=== PATIENT | female | born 1960 | race Caucasian/White ===

== ENCOUNTER 2016-10-20 07:13 | Inpatient (IN) | payer OTHER ==
[2016-10-01 12:01] VITALS: BMI 36.0
--- NOTE | 2016-10-01 12:40 | PAT Medication Instructions ---
Service Date Oct 01, 2016. Current Home Medication List Acetaminophen (Tylenol Arthritis Ext Rel), 1,300 MG PO Q6HR PRN Desloratadine (Clarinex *), 5 MG PO QAM Diclofenac (Voltaren), 75 MG PO BID Lisinopril (Lisinopril), 1 TAB PO QAM Simvastatin (Simvastatin), 1 TAB PO QAM Medication Instructions For Your Scheduled Surgery - Hold the following medications 7 days prior to surgery: Diclofenac (Voltaren), 75 MG PO BID - Hold the following medications the morning of surgery: Lisinopril (Lisinopril), 1 TAB PO QAM Desloratadine (Clarinex *), 5 MG PO QAM - Take the following medications the morning of surgery with a sip of water: Simvastatin (Simvastatin), 1 TAB PO QAM. Acetaminophen (Tylenol Arthritis Ext Rel), 1,300 MG PO Q6HR PRN (if needed) - Take the following medications as scheduled the night before surgery: Acetaminophen (Tylenol Arthritis Ext Rel), 1,300 MG PO Q6HR PRN If you have any questions please call us at [phone] or [phone] ( [place]) or [phone]
[2016-10-01 13:09] LABS: BASO % 0.2 %; BASO ABS # 0.02 K/uL (0-0.2); COMPLETE YES; EOS % 1.6 %; HEMATOCRIT 39.5 % (37-47); IG% 0.2 %; LYMPH % 30.6 %; LYMPH ABS # 2.49 K/uL (1.2-3.4); MEAN CELL VOLUME 84.8 fL (80-100); MEAN CORPUSCULAR HGB CONC 34.2 g/dl (32-36); MEAN PLATELET VOLUME 9.5 fL (7.4-10.4); MONO % 5.3 %; NEUT % 62.1 %; PLATELET COUNT 282 K/uL (130-400); RED BLOOD COUNT 4.66 M/uL (4.2-5.4); WHITE BLOOD COUNT 8.13 K/uL (4.8-10.8)
[2016-10-01 13:10] LABS: URINE APPEARANCE CLEAR (CLEAR); URINE BILIRUBIN NEG (NEG); URINE COLOR YELLOW; URINE NITRITE NEG (NEG); URINE SPECIFIC GRAVITY 1.017 (1.000-1.030); UROBILINOGEN NEG (NEG); ZZUR CULT IF INDIC CLEAN CATCH NO
[2016-10-01 13:11] LABS: MANUAL MICROSCOPIC REQUIRED? NO; REVIEW REQ? NO
[2016-10-01 13:20] LABS: PROTHROMBIN TIME (PATIENT) 10.5 SECONDS (9.0-12.0)
--- NOTE | 2016-10-01 13:23 | DIAGNOSTIC IMAGING REPORT ---
CHEST 2 VIEWS ROUTINE CLINICAL HISTORY: Preoperative chest COMPARISON STUDY: 01/21/2010 FINDINGS: The cardiac and mediastinal contours are normal. There is no evidence of focal pulmonary consolidation. There is no evidence of failure. No pleural effusions are visualized.[ IMPRESSION: No active disease in the chest. Electronically signed by: Rocky Soto M.D. 10/01/2016 1:21 PM Dictated Date/Time: 10/01/2016 1:21 PM
[2016-10-01 13:29] LABS: BUN/CREATININE RATIO 21.2 (10-20); CALCIUM 9.3 mg/dl (8.5-10.1); CREATININE 0.76 mg/dl (0.60-1.20); POTASSIUM 4.2 mmol/L (3.5-5.1)
--- NOTE | 2016-10-19 10:38 | HISTORY & PHYSICAL EXAMINATION ---
DATE OF ADMISSION: 10/20/2016 CHIEF COMPLAINT: Right hip pain. HISTORY OF PRESENT ILLNESS: Ms. Ortez is a 56-year-old female with a multiple-year history of pain in her right hip. The patient's pain has been worse for the last year and half. She rates her pain a 6/10. She has pain with her daily activities. She has limited standing and walking tolerance. Pain is worse with weightbearing. The patient has had anti-inflammatories without relief. She is now scheduled for a right hip replacement. PAST MEDICAL HISTORY: Hypertension, hypercholesterolemia, and obesity. She denies heart disease, diabetes or DVT. PAST SURGICAL HISTORY: Tonsillectomy, right ankle, left hip resurfacing and left wrist. SOCIAL HISTORY: The patient denies alcohol or tobacco use. She lives in a split level home. She is and works in a lab. FAMILY HISTORY: Positive for diabetes. MEDICATIONS: Diclofenac 75 mg twice daily, Tylenol 650 mg p.r.n., ibuprofen 200 mg p.r.n., Zocor 10 mg daily, lisinopril 10 mg daily, Restasis 0.05%. ALLERGIES: CODEINE, PENICILLIN, PROMETHAZINE AND HYDROCHLOROTHIAZIDE. REVIEW OF SYSTEMS: See HPI. Ten other systems reviewed, all negative. PHYSICAL EXAMINATION: VITAL SIGNS: Height 5 foot 2, weight 205 pounds. BMI is 37. GENERAL: This is a well-developed, well-nourished female who is alert and oriented x3. Mood and affect are appropriate. HEENT: Normocephalic, atraumatic. Mucous membranes are moist and intact. NECK: Supple without lymphadenopathy. HEART: Regular rate and rhythm without murmurs, rubs or gallops. LUNGS: Clear to auscultation without wheezes or rhonchi. ABDOMEN: Soft and nontender. Bowel sounds are equal and active. EXTREMITIES: No ecchymosis, redness or warmth. The patient has calves soft and nontender. Log roll of the hip reproduces pain in the groin. Range of motion is decreased. She is neurovascularly intact with +5/5 strength. X-RAY EXAMINATION: AP and lateral views show joint space narrowing and osteophyte formation. She has moderate hip dysplasia and a very vertical neck. 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 PLAN: The patient will be admitted for a right hip resurfacing. We will plan on direct anterior. She will have aspirin for DVT prophylaxis. PCP is Dr. Zayas of [facility].
[2016-10-20] VITALS (9 sets, daily range): BP systolic 113–157; BP diastolic 68–85; PULSE 61–91; TEMP 36.3–37.1; O2SAT 97–100; Ht 160 cm; Wt 92.4 kg
[~2016-10-20] VITALS: Ht 160 cm; Wt 92.4 kg
[~2016-10-20 07:13] MED LIST: ACET1TAB84 PO; ACETAMINOPHEN 500 MG TAB PO SCH; CEFAZOLIN 2000 MG/60 ML D5W 60 ML IV SCH; CLINDAMYCIN 600 MG/54 ML D5W 54 ML IV SCH; CLR5 PO; DICL-201 PO; FAMOTIDINE 20 MG TAB PO SCH; LACTATED RINGER'S 1000ML 500 ML IV ONE; LACTATED RINGER'S 500 ML IV SCH; LSN40 PO; METOCLOPRAMIDE HCL 10 MG TAB PO SCH; OXYCODONE HCL 10 MG TABCR (OXYCONTIN) PO SCH; ROPIVACAINE 5MG/ML 30 ML 150 MG, BUPIVACAINE/EPINEPHR 0.5% MPF 30 ML, KETOROLAC TROMETH... INFIL SCH; SCOPOLAMINE 1.5 MG TDSY TD SCH; ZCR40 PO
[2016-10-20] MEDS ORDERED: BUPIVACAINE 0.5 % 5 MG/1 ML PF 10ML VIAL ONE (07:41)
[2016-10-20] MEDS ORDERED: PROPOFOL IV EMULSION 10 MG/ML 20 ML VIAL IV ONE (07:42)
[2016-10-20] MEDS ORDERED: LIDOCAINE HCL 2% 2 ML VIAL (20MG/ML) ONE (07:42)
[2016-10-20] MEDS ORDERED: MIDAZOLAM HCL 1 MG/ML 2ML VIAL ONE ×2 (07:42)
[2016-10-20] MEDS ORDERED: FENTANYL CITRATE INJ 50 MCG/1 ML 2 ML VIAL ONE (07:42)
[2016-10-20] MEDS: DEXAMETHASONE 4 MG TAB PO SCH ×2 (08:30→14:31)
[2016-10-20] MEDS: CeleBREX 200 MG CAP PO SCH ×2 (08:31→14:31)
[2016-10-20] MEDS: GABAPENTIN 300 MG CAP PO SCH ×2 (08:31→14:31)
--- NOTE | 2016-10-20 09:09 | History & Physical Bridge Note ---
H&P Re-Evaluation Bridge Note: I have examined the patient, reviewed the History & Physical and in the interval since the performance of the History & Physical I have noted the following changes of clinical significance: No changes noted
[2016-10-20] MEDS ORDERED: CLINDAMYCIN 600 MG/54 ML D5W IV ONE (09:40)
[2016-10-20] MEDS ORDERED: OXYCODONE HCL 10 MG TABCR (OXYCONTIN) PO ONE (09:44)
[2016-10-20] MEDS ORDERED: ORTHO JOINT ANESTHETIC ONE (09:55)
[2016-10-20] MEDS ORDERED: POVIDONE-IODINE OP SOLN 30 ML BTL ONE (09:56)
[2016-10-20] MEDS ORDERED: BACITRACIN 50000 UNIT VIAL ONE (09:56)
[2016-10-20] MEDS: TRANEXAMIC ACID INJ 1,000 MG in SODIUM CHLORIDE 0.9% 100ML 100 ML IV SCH ×3 (10:10→14:30)
[2016-10-20] MEDS ORDERED: ONDANSETRON INJ 2 MG/ML 2 ML VIAL ONE (11:39)
[2016-10-20] MEDS ORDERED: PHENYLEPHRINE 100MCG/ML 5ML SYR IV PRN (11:45)
[2016-10-20] MEDS ORDERED: ATROPINE SULFATE 0.1 MG/ML 5ML SYR IV PRN (11:45)
[2016-10-20] MEDS ORDERED: ONDANSETRON INJ 2 MG/ML 2 ML VIAL IV PRN ×2 (11:45→12:15)
[2016-10-20] MEDS ORDERED: EpHEDrine SULFATE INJ 50 MG/ML AMP IV PRN (11:45)
[2016-10-20] MEDS ORDERED: KETOROLAC TROMETHAMINE 30 MG/ML VIAL IV. PRN (11:45)
[2016-10-20] MEDS ORDERED: HYDROmorphone INJ 2 MG/ML SYR/VIAL IV PRN (11:45)
[2016-10-20] MEDS: POLYMYXIN B SULFATE 100,000 UNITS in NSS 100ML IR SCH ×2 (12:03→14:30)
[2016-10-20] MEDS: VANCOMYCIN INJ 400 MG in NSS 100ML IR SCH ×2 (12:03→14:30)
--- NOTE | 2016-10-20 12:06 | [facility] Post Operative Brief Note ---
Immediate Operative Summary Operative Date Oct 20, 2016. 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 Maksim Guillory Picker Machine Operator Surgeon(s) Deven Arzola PA-C Estimated Blood Loss 150 ml Findings DJD OBESE Specimens A. Right femoreal head Complication(s) None Disposition Recovery Room / PACU
[2016-10-20] MEDS ORDERED: METOCLOPRAMIDE HCL INJ 5 MG/ML 2 ML VIAL IV PRN (12:15)
[2016-10-20] MEDS ORDERED: OXYCODONE HCL IR 5 MG TAB (IMMEDIATE RELEASE) PO PRN (12:15)
[2016-10-20] MEDS ORDERED: DiphenhydrAMINE HCL 50 MG/ML VIAL IV PRN (12:15)
[2016-10-20] MEDS ORDERED: MAGNESIUM HYDROXIDE SUSP 30 ML UDC PO PRN (12:15)
[2016-10-20] MEDS ORDERED: TRAMADOL HCL 50 MG TAB PO PRN (12:15)
[2016-10-20] MEDS ORDERED: BISACODYL 10 MG SUPP PR PRN (12:15)
[2016-10-20] MEDS ORDERED: ALUMINUM/MAGNESIUM/SIMETH (MAALOX MAX) 30 ML UDC PO PRN (12:15)
[2016-10-20] MEDS ORDERED: SOD PHOSPHATE/SOD BIPHOSPHATE ENEMA 132 ML BTL PR PRN (12:15)
[2016-10-20] MEDS ORDERED: ZOLPIDEM TARTRATE 5 MG TAB PO PRN (12:15)
[2016-10-20] MEDS ORDERED: MoRPHine SULFATE 2 MG/ML CARP IV PRN (12:15)
--- NOTE | 2016-10-20 12:20 | DIAGNOSTIC IMAGING REPORT ---
INTRAOPERATIVE FLUOROSCOPIC IMAGE OF THE RIGHT HIP CLINICAL HISTORY: Total right hip arthroplasty. COMPARISON STUDY: Pelvis radiograph February 17, 2010. Fluoroscopy time: 15 seconds. FINDINGS: A single fluoroscopic image of the right hip demonstrates anatomic alignment of the right hip arthroplasty with acetabular screw. The distal aspect of the femoral component was not imaged on this exam. IMPRESSION: Expected intraoperative findings during right hip arthroplasty. The distal aspect of the femoral component was not imaged on this exam. Electronically signed by: Uriah Guevara M.D. 10/20/2016 12:18 PM Dictated Date/Time: 10/20/2016 12:17 PM
--- NOTE | 2016-10-20 13:08 | DIAGNOSTIC IMAGING REPORT ---
RIGHT PELVIS/UNILATERAL HIP 1 VIEW CLINICAL HISTORY: Postop study. Degenerative arthritis. COMPARISON STUDY: No previous studies for comparison. FINDINGS: There are postsurgical changes of a left hip resurfacing procedure. There are postsurgical changes of a recent total right hip arthroplasty. There is an overlying surgical drain. There is air within the soft tissues consistent with recent surgery. There is no dislocation. The acetabular and femoral components appear well seated. There is a nonspecific lucency within the left ischium, possibly representing postsurgical air. IMPRESSION: 1. Postsurgical changes of a total right hip arthroplasty 2. Nonspecific lucency within the left history of, possibly related to postsurgical air although the recent surgery was on the right side. Electronically signed by: Rocky Soto M.D. 10/20/2016 1:07 PM Dictated Date/Time: 10/20/2016 1:05 PM
--- NOTE | 2016-10-20 13:46 | Anesthesiology Progress Note ---
Anesthesia Post Op Note Date & Time Oct 20, 2016 at 13:46 Vital Signs Pain Intensity: 0 Vital Signs Past 12 Hours Date Time Temp Pulse Resp B/P Pulse Ox O2 Delivery O2 Flow Rate FiO2 10/20/16 13:40 36.0 61 13 105/58 100 Nasal Cannula 2 10/20/16 13:30 62 14 98/56 100 Nasal Cannula 2 10/20/16 13:20 61 12 111/61 100 Nasal Cannula 2 10/20/16 13:10 64 15 106/54 100 Nasal Cannula 2 10/20/16 13:00 60 12 102/62 100 Nasal Cannula 2 10/20/16 12:50 70 13 110/64 100 Nasal Cannula 2 10/20/16 12:43 36.1 83 15 110/61 99 Nasal Cannula 2 10/20/16 08:02 36.7 91 20 157/77 97 Room Air Notes Mental Status: alert / awake / arousable, participated in evaluation Pt Amnestic to Procedure: Yes Nausea / Vomiting: adequately controlled Pain: adequately controlled Airway Patency, RR, SpO2: stable & adequate BP & HR: stable & adequate Hydration State: stable & adequate Anesthetic Complications: no major complications apparent
[2016-10-20] MEDS: LACTATED RINGER'S 1000ML 1,000 ML IV SCH ×2 (14:29→14:30)
[2016-10-20] MEDS: D5W AND 1/2NSS + 20MEQ KCL 1,000 ML IV SCH (15:15)
[2016-10-20] MEDS: CLINDAMYCIN IV 600 MG in DEXTROSE 5% ADD-VANTAGE 50ML 50 ML IV SCH (17:53)
[2016-10-20] MEDS: KETOROLAC TROMETHAMINE 30 MG/ML VIAL IV. SCH ×2 (17:53→22:59)
[2016-10-20] MEDS ORDERED: TRANEXAMIC ACID INJ 1,000 MG in SODIUM CHLORIDE 0.9% 100ML 100 ML IV SCH (18:30)
[2016-10-20] MEDS ORDERED: SENNA 8.6 MG TAB PO SCH (21:00)
[2016-10-20] MEDS: ASPIRIN 81 MG ECTAB PO SCH (21:32)
[2016-10-20] MEDS: ACETAMINOPHEN 500 MG TAB PO SCH (21:33)
--- NOTE | 2016-10-21 00:58 | OPERATIVE REPORT ---
DATE OF OPERATION: 10/20/2016 PREOPERATIVE DIAGNOSIS: Degenerative arthritis, right hip. POSTOPERATIVE DIAGNOSIS: Same. PROCEDURE: Right total hip replacement. SURGEON: Bebo Guillory MD SERVICE DESK LEAD: SHADY Rodriguez ANESTHESIA: Spinal. BLOOD LOSS: 150 mL. DRAINS: Hemovacs x1. CULTURES: None. COMPLICATIONS: None. COMPONENTS USED: [employer] hip system: Acetabulum size 50, femur size 4 standard offset, femoral head, +4, 32 mm. NOTE: SHADY Rodriguez was present and assisted throughout due to the complicated nature of this case. He helped with preparation and set up, first assisted throughout and closed the fascial, subcutaneous and skin layers and applied the postoperative dressing. DESCRIPTION OF THE PROCEDURE: Following satisfactory spinal, the patient was supine. The right hip was placed in the traction device and the left hip in the well leg galvan. The hip was prepared with ChloraPrep and draped sterilely. Following a surgical time-out, an anterior approach in the interval between the sartorius and tensor muscles was completed. The circumflex femoral vessels were identified and ligated. An anterior capsulotomy was performed exposing a severely arthritic femoral neck and head. The femoral neck and head were trimmed allowing removal of the femoral head. The acetabular self-retaining retractor was placed. Acetabular reaming was completed and under fluoroscopic guidance, a 50 shell was impacted into an anatomic position, secured with a dome screw. Local anesthetic was placed and after irrigation, the polyethylene liner was placed. Attention was turned to the femur. The femur was placed in a position of external rotation, extension and adduction. Femoral canal was prepared up to a size 4. A trial reduction with a +4 head using fluoroscopy showed christianity of leg lengths with anatomic landmarks and good fit and fill of the proximal canal again with fluoroscopy. The hip was dislocated. The trial component removed. The final implant was placed with local anesthetic and after irrigation the hip was reduced with fluoroscopy confirming the position. A Betadine soak was performed. After 5 minutes, the Betadine was irrigated. The capsule was closed with 1-0 Vicryl interrupted. The drain was then placed. The fascia was closed with a running suture of #1 Vicryl, subcutaneous tissues with 1 and 2-0 Vicryl and the skin with a running subcuticular stitch of 3-0 V-Loc. Dermabond and a dry dressing were applied. The patient was returned to her bed in stable condition. I attest to the content of the Intraoperative Record and any orders documented therein. Any exceptio ns are noted below.
[2016-10-21] MEDS: D5W AND 1/2NSS + 20MEQ KCL 1,000 ML IV SCH ×2 (01:31→11:04)
[2016-10-21] MEDS: CLINDAMYCIN IV 600 MG in DEXTROSE 5% ADD-VANTAGE 50ML 50 ML IV SCH (01:32)
[2016-10-21 03:25] VITALS: BP 109/69; PULSE 61; TEMP 36.8; O2SAT 98
[2016-10-21] MEDS: KETOROLAC TROMETHAMINE 30 MG/ML VIAL IV. SCH ×2 (05:52→11:17)
[2016-10-21] MEDS: ACETAMINOPHEN 500 MG TAB PO SCH ×2 (05:56→14:00)
[2016-10-21 07:30] VITALS: BP 128/76; PULSE 60; TEMP 36.6; O2SAT 99
[2016-10-21 07:45] LABS: COMPLETE YES; HEMATOCRIT 29.4 % (37-47); IG% 0.3 %; LYMPH % 9.2 %; LYMPH ABS # 1.17 K/uL (1.2-3.4); MEAN CELL VOLUME 84.7 fL (80-100); MEAN CORPUSCULAR HEMOGLOBIN 28.5 pg (25-34); MEAN CORPUSCULAR HGB CONC 33.7 g/dl (32-36); MEAN PLATELET VOLUME 9.3 fL (7.4-10.4); MONO % 5.1 %; NEUT % 85.4 %; PLATELET COUNT 234 K/uL (130-400); RED BLOOD COUNT 3.47 M/uL (4.2-5.4); WHITE BLOOD COUNT 12.66 K/uL (4.8-10.8)
--- NOTE | 2016-10-21 07:45 | Orthopedic Progress Note ---
Orthopedic Progress Note Date of Service Oct 21, 2016. Subjective Post OP Day: 1 Reports: feeling well, pain controlled w PO medications, Denies: SOB, chest pain , complaints Objective calves soft nontender, N/V intact, hip located, dressing C/D/I, A&O x3, toes mobile, hemovac drainage (50 last shift ) Date Time Temp Pulse Resp B/P Pulse Ox O2 Delivery O2 Flow Rate FiO2 10/21/16 07:10 Room Air 10/21/16 03:25 36.8 61 16 109/69 98 Room Air 10/20/16 23:34 36.7 70 17 133/69 98 Room Air 10/20/16 23:15 Room Air 10/20/16 19:29 37.1 91 17 122/85 99 Room Air 10/20/16 17:14 36.5 64 17 133/76 99 Nasal Cannula 2.0 10/20/16 16:08 36.3 67 17 120/75 100 Nasal Cannula 2.0 10/20/16 15:00 61 18 116/74 100 10/20/16 14:48 100 Nasal Cannula 2.0 10/20/16 14:35 61 16 121/77 100 Nasal Cannula 2.0 10/20/16 14:00 Nasal Cannula 2.0 10/20/16 14:00 36.8 74 12 113/68 98 Nasal Cannula 2.0 10/20/16 14:00 Nasal Cannula 2.0 10/20/16 13:50 58 12 104/60 100 Nasal Cannula 2 10/20/16 13:40 36.0 61 13 105/58 100 Nasal Cannula 2 10/20/16 13:30 62 14 98/56 100 Nasal Cannula 2 10/20/16 13:20 61 12 111/61 100 Nasal Cannula 2 10/20/16 13:10 64 15 106/54 100 Nasal Cannula 2 10/20/16 13:00 60 12 102/62 100 Nasal Cannula 2 10/20/16 12:50 70 13 110/64 100 Nasal Cannula 2 10/20/16 12:43 36.1 83 15 110/61 99 Nasal Cannula 2 10/20/16 08:02 36.7 91 20 157/77 97 Room Air Laboratory Results 24 Hours: Test 10/21/16 07:10 Assessment & Plan Assessment: POD 1 CATHY Plan: HOME TODAY W ADVANTAGE HH Inhouse Planning Pain Management: Celebrex, PO Tylenol, Oxy IR DVT Prophylaxis: TEDs, SCDs, ASA Discharge Planning Discharge Planning: home with home health Pain Management: Celebrex, PO Tylenol, Oxy IR DVT Prophylaxis: TEDs, ASA Therapy: Physical Therapy
[2016-10-21 08:06] LABS: BUN/CREATININE RATIO 16.6 (10-20); CALCIUM 8.1 mg/dl (8.5-10.1); CREATININE 0.74 mg/dl (0.60-1.20); POTASSIUM 4.1 mmol/L (3.5-5.1)
--- NOTE | 2016-10-21 08:23 | Discharge Instructions ---
Discharge Instructions Admission Reason for Admission: Right Hip Degenerative Arthritis Discharge Discharge Diagnosis / Problem: sp right CATHY Discharge Goals Goal(s): Decrease discomfort, Improve function, Increase independence Activity Recommendations Activity Limitations: per Instructions/Follow-up section . Instructions / Follow-Up Instructions / Follow-Up ACTIVITY RECOMMENDATIONS: SELF CARE INSTRUCTIONS AFTER TOTAL HIP REPLACEMENT : Direct Anterior Approach Until the incision and soft tissues around your hip have healed, there is a possibility that the hip prosthesis could dislocate. A. Hip flexion ( Up & Down out of chair or steps ) may be difficult. This is normal. B. Numbness in front of the thigh is also normal for a few weeks. C. Use hand rails when walking on stairs. D. Wear low heeled shoes with non-slip soles. E. Be sure that your floors are free of things that could trip you - throw rugs , electrical cords, small objects. Avoid wet and waxed floors, especially with crutches and canes. F. Try to walk several times a day with rest periods between. G. Continue with all the exercises taught to you in the hospital. Again, make walking a part of your daily routine. SPECIAL CARE INSTRUCTIONS: VERY IMPORTANT TO READ AND REVIEW A. You may still be at risk for phlebitis and blood clots. 1. Wear surgical stockings (RAO hose) for 2 weeks after surgery to improve circulation and reduce swelling. 2. Take Aspirin 81mg twice daily for 4 weeks or as directed by your doctor. This is your blood thinner. 3. High risk patients may be prescribed a stronger blood thinner if necessary. 4. If you are on Coumadin normally, your family doctor/police cadet should monitor your blood work. Expect a phone call the day of or the day after bloodwork is drawn to adjust your dosage. B. You must take antibiotics before having dental work, bladder, bowel and other surgery. Your doctor will provide you with a permanent card to carry describing precautions. C. Call [facility] if you have a fever, redness or swelling around the incision, cloudy drainage from incision, or sudden increase in pain in your hip, not relieved by your regular pain medication. D. Please call the office at if you have any concerns or questions about your operation or recovery. * YOU MAY SHOWER, NO TUB BATHS UNTIL CLEARED BY YOUR DOCTOR. - Keep an extra close eye on the top portion of your incision. Be sure to keep clean & dry. * WEAR RAO HOSE 20 HOURS PER DAY FOR 2 WEEKS. * YOU MAY PROGRESS FROM A WALKER, TO A CANE, TO INDEPENDENT AT YOUR OWN PACE. * MOST PATIENTS WILL HAVE HOME NURSING FOR THERAPY. IF YOU DECIDE TO DO OUTPATIENT PHYSICAL THERAPY, PLEASE SCHEDULE THIS 3 TIMES PER WEEK. * DERMABOND Prineo- This is a mesh tape dressing that is covered with glue. It should remain in place until the incision is properly healed, usually 10-14 days. This dressing is designed to naturally slough off. You may trim the excess mesh tape as it peels off. Incision may be briefly wet in a shower. Dry immediately by blotting with a clean, dry towel. Do not bath or swim until instructed by your doctor. Do not scratch, rub, or pick at the dressing. Do not apply any topical ointments or lotions until dressing is completely removed and/or instructed by your doctor. There may be a small piece of suture material at one end of your incision. Do not pull or trim this. If it is bothersome or catching on clothing, you may cover it with a band-aid. FOLLOW UP VISIT: If appointment is not already scheduled: Please call [facility] to make a follow-up appointment for 2 weeks after your surgery at . Current Hospital Diet Patient's current hospital diet: Regular Diet Discharge Diet Recommended Diet: Regular Diet Procedures Procedures Performed: Right total hip, direct anterior approach, uncemented, [employer] Pending Studies Studies pending at discharge: no Medical Emergencies . Who to Call and When: Medical Emergencies: If at any time you feel your situation is an emergency, please call 911 immediately. . Non-Emergent Contact Non-Emergency issues call your: Primary Care Provider . "Provider Documentation" section prepared by Ghada Bond. VTE Core Measure Inpt VTE Proph given/why not?: Other Anticoagulation, T.E.D. Stockings, SCD's
[2016-10-21] MEDS ORDERED: ONDA8TAB6 PO (08:24)
[2016-10-21] MEDS ORDERED: CLB200 PO (08:24)
[2016-10-21] MEDS ORDERED: ASPEC81 PO (08:24)
[2016-10-21] MEDS ORDERED: SNK PO (08:24)
[2016-10-21] MEDS ORDERED: RXC5 PO (08:24)
[2016-10-21] MEDS ORDERED: ACET1TAB84 PO (08:24)
[2016-10-21 08:33] VITALS: BP 128/76; PULSE 60; TEMP 36.6; O2SAT 99
[2016-10-21] MEDS: ASPIRIN 81 MG ECTAB PO SCH (08:46)
[2016-10-21] MEDS ORDERED: LISINOPRIL 40 MG TAB PO SCH (09:00)
[2016-10-21] MEDS ORDERED: SIMVASTATIN 40 MG TAB PO SCH (09:00)
[2016-10-21] MEDS ORDERED: MULTIVITAMIN TAB PO SCH (09:00)
[2016-10-21] MEDS ORDERED: PANTOprazole SOD 40 MG TAB PO SCH (09:00)
[2016-10-21 09:54] VITALS: BP 118/73; PULSE 65; O2SAT 100
[2016-10-21 11:02] VITALS: BP 133/78; PULSE 79; TEMP 36.6; O2SAT 98
--- NOTE | 2016-10-21 12:04 | DISCHARGE SUMMARY ---
DATE OF DISCHARGE: 10/21/2016. DISCHARGE DIAGNOSIS: Degenerative joint disease, right hip. SECONDARY DIAGNOSES: Hypertension, hypercholesterolemia and obesity. CONSULTATIONS: None. COMPLICATIONS: None. PROCEDURES: Right total hip arthroplasty, direct anterior approach, by Dr. Manuel Guillory on 10/20/2016. BRIEF HISTORY: As dictated in the history and physical. HOSPITAL SUMMARY: The patient was admitted on the above-noted date and had the above-noted surgery performed which she tolerated well. On her first postoperative day, the patient was feeling well and the pain was controlled. Vital signs were stable. She was afebrile. Calves were soft and nontender, neurovascularly intact. Dressings clean, dry and intact. Toes were mobile. Hip was located. Hemoglobin was 9.9 and she was started on physical therapy protocol and continued on DVT prophylaxis and pain management. She continued to remain stable and progressed well with her physical therapy and it was otherwise felt that she could be discharged to home. For further review, please see chart. LABORATORY AND X-RAY DATA: As per chart. DISCHARGE INSTRUCTIONS: The patient was discharged to home in satisfactory condition on 10/21/2016. DIET: Regular. ACTIVITY: Follow CATHY instruction sheets for a direct anterior approach total hip replacement and follow special care instructions as noted. Follow up with Dr. Manuel Guillory in 2 weeks. The patient to call for appointment if one has not been made for you. DISCHARGE MEDICATIONS: Aspirin 81 mg p.o. b.i.d., Celebrex 200 mg p.o. b.i.d., Zofran 8 mg p.o. q. 8 hours p.r.n. nausea, oxycodone 5-10 mg p.o. q. 4 hours p.r.n., senna 17.2 mg p.o. at bedtime, resume taking Clarinex 5 mg p.o. q.a.m., lisinopril 1 tab p.o. q.a.m. 40 mg tablet, simvastatin 40 mg p.o. q.a.m., acetaminophen 1000 mg p.o. q. 8 hours. Stop taking Voltaren.
[2016-10-22] MEDS ORDERED: CeleBREX 200 MG CAP PO SCH (21:00)
== END 2016-10-21 14:35 | disposition home health service (06) | DRG 470 ==
LOC: ENRESERVDT → ENRESERVTM → C.ACU 07:13 → C.3E 12:09
PROVIDERS: ADMIT Orthopaedic Surgery; ATTEND Orthopaedic Surgery
PROC: 0SR904A Replacement of Right Hip Joint with Ceramic on Polyethylene Synthetic Substitute, Uncemented, Open Approach (ICD-10-PCS; principal; 2016-10-20 09:30)
DX: M16.11 Unilateral primary osteoarthritis, right hip (principal); Q65.89 Other specified congenital deformities of hip; I10 Essential (primary) hypertension; E78.00 Pure hypercholesterolemia, unspecified; E66.9 Obesity, unspecified; Z68.37 Body mass index [BMI] 37.0-37.9, adult; Z79.1 Long term (current) use of non-steroidal anti-inflammatories (NSAID); Z79.899 Other long term (current) drug therapy